=== PATIENT | male | born 1940 | race Caucasian/White ===

== ENCOUNTER 2020-07-06 07:28 | Outpatient (REF) | payer MEDICARE, SELFPAY ==
[2020-07-06 11:47] LABS: Estimated Average Glucose 217 mg/dL; Hemoglobin A1c % 9.2 %
[2020-07-06 11:51] LABS: Alanine Aminotransferase 29 U/L (0-40); Albumin Level 3.8 g/dL (3.5-5.0); Alkaline Phosphatase 57 U/L (39-117); Anion Gap 12 (12-20); Aspartate Amino Transferase 29 U/L (5-37); Blood Urea Nitrogen 15 mg/dL (9-16); Calcium 8.6 mg/dL (8.4-10.2); Carbon Dioxide 29 mmol/L (22-29); Chloride 102 mmol/L (96-108); Cholesterol 174 mg/dL; Estimated Glomerular Filt Rate > 60; Glucose Fasting 127 mg/dL (60-99); HDL Cholesterol 36 mg/dL; LDL Cholesterol Calculated 109 mg/dl; Potassium 4.5 mmol/l (3.3-5.1); Sodium 138 mmol/L (135-145); Total Protein 6.2 g/dL (6.5-8.0); Triglycerides 148 mg/dL
[2020-07-06 12:01] LABS: Creatinine Urine 95.15 mg/dL; Microalbum/Creatinine Ratio Ur 92.4 ug/mg cr
== END 2020-07-06 07:29 | disposition home or self-care (01) ==
LOC: HO.MANLR 07:28
PROVIDERS: PCP Internal Medicine; Visit Provider Internal Medicine
DX: E11.65 Type 2 diabetes mellitus with hyperglycemia (principal)
CPT/HCPCS: 80053; 80061; 82043; 83036

== ENCOUNTER 2020-09-09 10:56 | Outpatient (REF) | payer MEDICARE, SELFPAY ==
[2020-09-09 12:58] LABS: Estimated Average Glucose 243 mg/dL; Hemoglobin A1c % 10.1 %
== END 2020-09-09 10:57 | disposition home or self-care (01) ==
LOC: HO.MANLR 10:56
PROVIDERS: PCP Internal Medicine; Visit Provider Internal Medicine
DX: E11.65 Type 2 diabetes mellitus with hyperglycemia (principal)
CPT/HCPCS: 36415; 83036

== ENCOUNTER 2020-10-10 11:36 | Outpatient (REF) | payer MEDICARE, SELFPAY ==
[2020-10-10 13:42] LABS: Estimated Average Glucose 226 mg/dL; Hemoglobin A1c % 9.5 %
== END 2020-10-10 11:37 | disposition home or self-care (01) ==
LOC: HO.MANLR 11:36
PROVIDERS: PCP Internal Medicine; Visit Provider Internal Medicine
DX: E11.65 Type 2 diabetes mellitus with hyperglycemia (principal)
CPT/HCPCS: 36415; 83036

== ENCOUNTER 2020-11-04 08:01 | Outpatient (REF) | payer MEDICARE, SELFPAY ==
[2020-11-04 14:30] LABS: Estimated Average Glucose 209 mg/dL; Hemoglobin A1c % 8.9 %
== END 2020-11-04 08:02 | disposition home or self-care (01) ==
LOC: HO.MANLR 08:01
PROVIDERS: PCP Internal Medicine; Visit Provider Internal Medicine
DX: E11.65 Type 2 diabetes mellitus with hyperglycemia (principal)
CPT/HCPCS: 36415; 83036

== ENCOUNTER 2021-03-03 08:29 | Outpatient (REF) | payer MEDICARE, SELFPAY ==
[2021-03-03 11:22] LABS: Estimated Average Glucose 223 mg/dL; Hemoglobin A1c % 9.4 %
[2021-03-03 12:04] LABS: Alanine Aminotransferase 24 U/L (0-40); Albumin Level 3.8 g/dL (3.5-5.0); Alkaline Phosphatase 65 U/L (39-117); Anion Gap 15 (12-20); Aspartate Amino Transferase 22 U/L (5-37); Blood Urea Nitrogen 14 mg/dL (9-16); Calcium 8.9 mg/dL (8.4-10.2); Carbon Dioxide 25 mmol/L (22-29); Chloride 106 mmol/L (96-108); Cholesterol 181 mg/dL; Estimated Glomerular Filt Rate > 60; Glucose Random 121 mg/dL (60-115); HDL Cholesterol 35 mg/dL; LDL Cholesterol Calculated 116 mg/dl; Potassium 4.5 mmol/L (3.3-5.1); Sodium 141 mmol/L (135-145); Total Protein 6.5 g/dL (6.5-8.0); Triglycerides 152 mg/dL
== END 2021-03-03 08:30 | disposition home or self-care (01) ==
LOC: HO.MANLDS 08:29
PROVIDERS: Visit Provider Internal Medicine
DX: E11.65 Type 2 diabetes mellitus with hyperglycemia (principal)
CPT/HCPCS: 36415; 80053; 80061; 83036

== ENCOUNTER 2021-06-19 10:31 | Outpatient (REF) | payer MEDICARE, SELFPAY ==
[2021-06-19 11:53] LABS: Estimated Average Glucose 192 mg/dL; Hemoglobin A1c % 8.3 %
== END 2021-06-19 10:32 | disposition home or self-care (01) ==
LOC: HO.MANLDS 10:31
PROVIDERS: PCP Internal Medicine; Visit Provider Internal Medicine
DX: E11.65 Type 2 diabetes mellitus with hyperglycemia (principal)
CPT/HCPCS: 36415; 83036

== ENCOUNTER 2021-10-24 14:14 | Outpatient (REF) | payer MEDICARE, SELFPAY ==
[2021-10-24 18:00] LABS: Estimated Average Glucose 192 mg/dL; Hemoglobin A1c % 8.3 %
== END 2021-10-24 14:15 | disposition home or self-care (01) ==
LOC: HO.MANLDS 14:14
PROVIDERS: PCP Internal Medicine; Visit Provider Internal Medicine
DX: E11.65 Type 2 diabetes mellitus with hyperglycemia (principal)
CPT/HCPCS: 36415; 83036

== ENCOUNTER 2022-05-23 08:56 | Outpatient (REF) | payer MEDICARE, SELFPAY ==
[2022-05-23 11:31] LABS: Estimated Average Glucose 171 mg/dL; Hemoglobin A1c % 7.6 %
== END 2022-05-23 08:57 | disposition home or self-care (01) ==
LOC: HO.MANLDS 08:56
PROVIDERS: Visit Provider Internal Medicine
DX: E11.65 Type 2 diabetes mellitus with hyperglycemia (principal)
CPT/HCPCS: 36415; 83036

== ENCOUNTER 2022-09-14 13:55 | Outpatient (REF) | payer MEDICARE, SELFPAY ==
[2022-09-14 18:14] LABS: Estimated Average Glucose 183 mg/dL
== END 2022-09-14 13:56 | disposition home or self-care (01) ==
LOC: HO.MANLDS 13:55
PROVIDERS: Visit Provider Internal Medicine
DX: E11.65 Type 2 diabetes mellitus with hyperglycemia (principal)
CPT/HCPCS: 36415; 83036

== ENCOUNTER 2022-12-03 12:01 | Outpatient (REF) | payer MEDICARE, SELFPAY ==
[2022-12-03 13:23] LABS: Estimated Average Glucose 217 mg/dL; Hemoglobin A1c % 9.2 %
[2022-12-03 14:33] LABS: Alanine Aminotransferase 27 U/L (0-40); Albumin Level 3.9 g/dL (3.5-5.0); Alkaline Phosphatase 70 U/L (39-117); Anion Gap 12 (12-20); Aspartate Amino Transferase 23 U/L (5-37); Bilirubin Total 0.8 mg/dL (0.0-1.0); Blood Urea Nitrogen 20 mg/dL (9-16); Calcium 9.1 mg/dL (8.4-10.2); Carbon Dioxide 28 mmol/L (22-29); Chloride 102 mmol/L (96-108); Estimated Glomerular Filt Rate > 60; Glucose Random 274 mg/dL (60-115); Potassium 4.8 mmol/L (3.3-5.1); Sodium 137 mmol/L (135-145); Total Protein 6.2 g/dL (6.5-8.0)
== END 2022-12-03 12:02 | disposition home or self-care (01) ==
LOC: HO.MANLDS 12:01
PROVIDERS: Visit Provider Internal Medicine
DX: E11.65 Type 2 diabetes mellitus with hyperglycemia (principal)
CPT/HCPCS: 36415; 80053; 83036

== ENCOUNTER 2023-03-25 11:08 | Outpatient (REF) | payer MEDICARE, SELFPAY ==
[2023-03-25 14:19] LABS: Estimated Average Glucose 206 mg/dL; Hemoglobin A1c % 8.8 %
[2023-03-25 14:24] LABS: Alanine Aminotransferase 24 U/L (0-40); Albumin Level 3.8 g/dL (3.5-5.0); Alkaline Phosphatase 61 U/L (39-117); Anion Gap 10 (12-20); Aspartate Amino Transferase 25 U/L (5-37); Bilirubin Total 0.6 mg/dL (0.0-1.0); Blood Urea Nitrogen 18 mg/dL (9-16); Calcium 9.2 mg/dL (8.4-10.2); Carbon Dioxide 29 mmol/L (22-29); Chloride 106 mmol/L (96-108); Estimated Glomerular Filt Rate > 60; Glucose Random 151 mg/dL (60-115); Potassium 4.6 mmol/L (3.3-5.1); Sodium 140 mmol/L (135-145); Total Protein 6.8 g/dL (6.5-8.0)
== END 2023-03-25 11:09 | disposition home or self-care (01) ==
LOC: HO.MANLDS 11:08
PROVIDERS: Visit Provider Internal Medicine
DX: E11.65 Type 2 diabetes mellitus with hyperglycemia (principal)
CPT/HCPCS: 36415; 80053; 83036

== ENCOUNTER 2023-06-19 11:47 | Outpatient (REF) | payer MEDICARE, SELFPAY ==
[2023-06-19 14:11] LABS: Estimated Average Glucose 249 mg/dL; Hemoglobin A1c % 10.3 % (<6.0)
== END 2023-06-19 11:48 | disposition home or self-care (01) ==
LOC: HO.MANLDS 11:47
PROVIDERS: Visit Provider Internal Medicine
DX: E11.65 Type 2 diabetes mellitus with hyperglycemia (principal)
CPT/HCPCS: 36415; 83036

== ENCOUNTER 2023-08-12 09:13 | Outpatient (REF) | payer MEDICARE, SELFPAY ==
[2023-08-12 13:58] LABS: Estimated Average Glucose 206 mg/dL; Hemoglobin A1c % 8.8 % (<6.0)
== END 2023-08-12 09:14 | disposition home or self-care (01) ==
LOC: HO.MANLDS 09:13
PROVIDERS: Visit Provider Internal Medicine
DX: E11.65 Type 2 diabetes mellitus with hyperglycemia (principal)
CPT/HCPCS: 36415; 83036

== ENCOUNTER 2023-12-27 11:17 | Outpatient (REF) | payer MEDICARE, SELFPAY ==
[2023-12-27 13:52] LABS: Estimated Average Glucose 180 mg/dL; Hemoglobin A1c % 7.9 % (<6.0)
== END 2023-12-27 11:18 | disposition home or self-care (01) ==
LOC: HO.MANLDS 11:17
PROVIDERS: Visit Provider Internal Medicine
DX: E11.65 Type 2 diabetes mellitus with hyperglycemia (principal)
CPT/HCPCS: 36415; 83036

== ENCOUNTER 2024-03-04 10:32 | Outpatient (REF) | payer MEDICARE, SELFPAY ==
[2024-03-04 13:41] LABS: Estimated Average Glucose 220 mg/dL; Hemoglobin A1c % 9.3 % (<6.0)
== END 2024-03-04 10:33 | disposition home or self-care (01) ==
LOC: HO.MANLDS 10:32
PROVIDERS: Visit Provider Internal Medicine
DX: E11.9 Type 2 diabetes mellitus without complications (principal)
CPT/HCPCS: 36415; 83036

== ENCOUNTER 2024-10-26 10:29 | Outpatient (REF) | payer MEDICARE, SELFPAY ==
--- OUTSIDE RECORDS SUMMARY | 2024-10-26 11:52 | XMS_ITS | Continuity of Care Document ---
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) MDM MODERATE MUST MEET 2 OUT OF 3 ELEMENTS: PROBLEMS, DATA OR RISK ELEMENT 1: PROBLEMS ADDRESSED 1 OR MORE CHRONIC ILLNESS WITH EXACERBATION OR 2 OR MORE STABLE CHRONIC ILLNESSES OR 1 UNDIAGNOSED NEW PROBLEM OR 1 ACUTE ILLNESS W/SYMPTOMS OR 1 ACUTE COMPLICATED INJURY ELEMENT 2: DATA MUST MEET 1 OF 3 CATEGORIES CATEGORY 1: REVIEW OF PRIOR EXTERNAL NOTES, REVIEW OF RESULTS, ORDERING OF EACH TEST, ASSESSMENT REQUIRING INDEPENDENT HISTORIAN OR CATEGORY 2: INDEPENDENT INTERPRETATION OF TESTS BY ANOTHER PHYSICIAN OR SPECIALIST OR CATEGORY 3: DISCUSSION OF MGT OR TEST INTERPRETATION W/EXTERNAL PHYSICIAN OR SPECIALIST ELEMENT 3: RISK RISK OF COMPLICATIONS AND/OR MORBIDITY OR MORTALITY OF PATIENT MANAGEMENT PROVIDER MUST THOROUGHLY DOCUMENT EACH ELEMENT THAT IS COVERED Not available 10/26/2024 11:00:24 Plan of Treatment Reminders Order Date Submit Date Provider Last Modified By Organization Details Last Modified Time Details Appointments FOLLOW UP 15 2024 10:45A M DR THOMAS Not available Not available Not available FOLLOW UP 15 2024 10:15A M DR THOMAS Not available Not available Not available Lab None recorded . Referral None recorded . Procedures None recorded . Surgeries None recorded . Imaging None recorded . Medication Orders None recorded . Patient TargetsNo targets recorded. Patient Instructions Encounter Date Encounter Id Patient Instructions Last Modified By Organization Details Last Modified Time 10/26/2024 [id number] Peripheral Arterial Disease (PAD): Care Instructions Not available 10/26/2024 11:01:32 learning about type 2 diabetes Not available 10/26/2024 11:01:32 type 2 diabetes: care instructions Not available 10/26/2024 11:01:32 high blood pressure: care instructions Not available 10/26/2024 11:01:32 learning about high blood pressure Not available 10/26/2024 11:01:32 pulse oximetry* AR Not available 10/26/2024 11:09:59 atrial fibrillation: care instructions Not available 10/26/2024 11:01:32 Reason for Referral None Reported. Results Created Date Observation Date Name Description Value Unit Range Abnormal Flag Note LastModifiedBy Organization Detail LastModifiedTime 10/26/19 25 10/26/2024 pulse oxime try* Result 98 Not Available [facility] [address], [place], [address], 10/23/2024 11:14:03 Result Notes None recorded. Problems Name Problem SNOMED Code Status Onset Date Resolution Date Notes Provider Name and Address Organization Details Recorded Time Edema of lower extremit y 668032737 Active 2017 Not Available [facility] 3 11:53:14 Osteoart hritis of knee 373744592 Active 2017 Not Available [facility] 3 11:53:14 Tachyarr hythmia 8310750 Active 2017 Not Available [facility] 3 11:53:14 [facility] patrica 89716005 Active 2017 Not Available [facility] 3 11:53:14 Myasthen ia gravis 69391350 Active 2017 Not Available [facility] 3 11:53:14 Type 2 diabetes mellitus 02537444 Active 2017 Not Available [facility] 3 11:53:14 Venous stasis ulcer of leg 869973906 Active 2019 Not Available [facility] 3 11:53:14 Atrial fibrilla tion 95243127 Active 2022 Not Available [facility] 3 11:53:14 Peripher al vascular disease 453657020 Active 2022 Not Available [facility] 3 11:53:14 Contact dermatit is 59359328 Active 2022 Not Available [facility] 3 11:53:14 Contact dermatit is caused by urushiol from [facility] debo 097673706 Active 2022 Not Available [facility] 3 11:53:14 Dyspnea on exertion 49044277 Active 2023 Tommie Thomas, DO [address] [place], [address], [facility] 4 11:10:11 Aortic valve stenosis 90577783 Active 2023 Tommie Thomas, DO [address] [place] [address], [phone], [facility] Internal [facility] 4 11:12:53 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 Medical Equipment None Reported. Allergies Allergen ID Allergen Name Allergen Category Reaction Reaction Severity Criticality Documentation Date Start Date Code Code System Note Provider Name and Address Organization Details Recorded Time 232 Product containin g 3-hydroxy -3-methyl glutaryl- coenzyme A reductase inhibitor (product) medicatio n other Not available Not available 11/04/2017 [id number] SNOMED Nataliya Rdz [facility] 8 11:08:02 Medications Name Sig Start Date Stop Date Status Note LastModified by Organization Details LastModified Time Prescriptio n - Prior Authorizati on Request 12/30 completed Not Available Not Available Not Available celecoxib 200 mg capsule 12/30 completed Not Available Not Available Not Available metformin 500 mg tablet TAKE 1 TABLET BY MOUTH TWICE DAILY WITH MEALS 09/24 completed Not Available Not Available Not Available prednisone 10 mg tablet TAKE 1 TABLET BY MOUTH EVERY DAY FOR 10 DAYS 07/06 completed Not Available Not Available Not Available azithromyci n 250 mg tablet TAKE 2 TABLETS (500 MG) BY ORAL ROUTE ONCE DAILY FOR 1 DAY THEN 1 TABLET (250 MG) BY ORAL ROUTE ONCE DAILY FOR 4 DAYS 09/28 completed Not Available Not Available Not Available glyburide 5 mg tablet TAKE 1 TABLET BY MOUTH TWICE DAILY 08/09 completed Not Available Not Available Not Available ofloxacin 0.3 % eye drops 07/21 completed Not Available Not Available Not Available lisinopril 20 mg tablet TAKE 1 TABLET BY MOUTH EVERY DAY active Not Available Not Available No t Available glipizide 10 mg tablet TAKE 1 TABLET BY MOUTH TWICE DAILY active Not Available Not Available No t Available moxifloxaci n 400 mg tablet TAKE 1 TABLET BY MOUTH DAILY FOR 10 DAYS 03/04 completed Not Available Not Available Not Available torsemide 10 mg tablet active Not Available Not Available Not Available methotrexat e sodium 25 mg/mL injection solution INJECT 1 ML UNDER THE SKIN EVERY WEEK active Not Available Not Available No t Available spironolact one 25 mg tablet Take 1 tablet every day by oral route for 30 days. 01/23 completed Not Available Not Available Not Available hydromorpho ne 2 mg tablet 04/09 completed Not Available Not Available Not Available cephalexin 500 mg capsule TAKE 1 CAPSULE BY MOUTH FOUR TIMES DAILY FOR 7 DAYS 07/06 completed Not Available Not Available Not Available pantoprazol e 40 mg tablet,kesha yed release 12/30 completed Not Available Not Available Not Available folic acid 1 mg tablet TAKE 1 TABLET BY MOUTH EVERY DAY active Not Available Not Available No t Available furosemide 20 mg tablet Take 1 tablet every day by oral route for 90 days. 09/28 completed Not Available Not Available Not Available methylpredn isolone 4 mg tablets in a dose pack FOLLOW PACKAGE DIRECTION S 12/29 completed Not Available Not Available Not Available glipizide 5 mg tablet TAKE 1 TABLET BY MOUTH TWICE DAILY active Not Available Not Available No t Available Alberto Low Strength 81 mg tablet,kesha yed release Take 1 tablet every day by oral route. active Not Available Not Available No t Available methotrexat e sodium (PF) 25 mg/mL injection solution INJECT 1 ML UNDER THE SKIN EVERY WEEK 07/06 completed Not Available Not Available Not Available BD SafetyGlide Tuberculin Regular Bevel 1 mL 27 x 1/2 syringe INJECT 1 EACH UNDER THE SKIN DIRECTED FOR WEEKLY METHOTREX ATE INJECTION active Not Available Not Available No t Available metoprolol tartrate 25 mg tablet TAKE 1 TABLET BY MOUTH TWICE DAILY active Not Available Not Available No t Available Boostrix Tdap 2.5 Lf unit-8 mcg-5 Lf/0.5 mL intramuscul ar syringe 01/23 completed Not Available Not Available Not Available BD Ultra-Fine Short Pen Needle 31 gauge x 5/16 USE DIRECTED ONCE DAILY 04/12 completed Not Available Not Available Not Available Januvia 100 mg tablet TAKE 1 TABLET BY MOUTH EVERY DAY active Not Available Not Available No t Available Durezol 0.05 % eye drops 04/21 completed Not Available Not Available Not Available OneTouch Verio test strips USE 1 STRIP TO TEST BLOOD GLUCOSE DAILY active Not Available Not Available No t Available Prolensa 0.07 % eye drops 04/21 completed Not Available Not Available Not Available Trulicity 1.5 mg/0.5 mL subcutaneou s pen injector ADMINISTE R 1.5 MG UNDER THE SKIN EVERY WEEK active Not Available Not Available No t Available Trulicity 0.75 mg/0.5 mL subcutaneou s pen injector INJECT 0.75 MG UNDER THE SKIN TWICE ONCE PER WEEK 07/06 completed Not Available Not Available Not Available Gillaglharry KwikPen U-100 Insulin 100 unit/mL (3 mL) subcutaneou s INJECT 30 UNITS UNDER THE SKIN EVERY DAY active Not Available Not Available No t Available Shingrix (PF) 50 mcg/0.5 mL intramuscul ar suspension, kit 01/23 completed Not Available Not Available Not Available Vitals Date Recorded Body height Body mass index (BMI) Body weight Heart rate Oxygen saturation Oxygen saturation in Arterial blood by Pulse oximetry Systolic blood pressure Diastolic blood pressure Provider Name and Address Organization Details Last Updated DateTime 5 176.53 cm 33.5 kg/m2 450771. 25 g 40 /min 98 % 98 % 124 mm[Hg] 64 mm[Hg] [facility] 5 10:49:53 Social History Question Answer Notes LastModified by Organizat ion Details LastModified Time Tobacco Smoking Status [facility] 13:39:46 What Was The Date Of Your Most Recent Tobacco Screening? 10/26/2024 Information not available 10/26/2024 Do You Or Have You Ever Used Any Other Forms Of Tobacco Or Nicotine? No Information not available 09/24/2022 Sex: Unknown Functional Status None recorded. Mental Status None recorded. Family History Nothing Reported. Medical History No medical history recorded. Immunizations Vaccine Type Date Status Note Provider Nam e and Address Organization Details Recorded Time COVID-19, mRNA, LNP-S, PF, 30 mcg/0.3 mL dose 12/04/19 completed Diamond flores [facility] 03/08/2021 08:33:00 COVID-19, mRNA, LNP-S, PF, 30 mcg/0.3 mL dose 12/25/19 21 completed [facility] 03/08/2021 08:33:09 Influenza, split virus, quadrivalent, preservative 07/07/20 21 completed [facility] 07/21/2021 11:10:18 COVID-19, mRNA, LNP-S, PF, 30 mcg/0.3 mL dose 08/16/20 21 completed Tommie Thomas, [address], [phone] 08/18/2021 07:09:38 COVID-19, mRNA, LNP-S, PF, 30 mcg/0.3 mL dose 03/21/20 22 completed Lupe flores [facility] 03/23/2022 08:47:42 zoster live 02/12/20 18 completed Nataliya flores [facility] 06/20/2018 11:27:28 zoster live 05/29/20 18 dominick folres [facility] 06/20/2018 11:27:38 Influenza, split virus, quadrivalent, preservative 05/29/20 18 dominick flores [facility] 06/20/2018 11:27:53 pneumococcal polysaccharide PPV23 07/18/20 16 completed Nataliya flores [facility] 06/20/2018 11:28:54 Pneumococcal conjugate PCV 13 01/20/20 15 completed Nataliya flores [facility] 06/20/2018 11:29:08 COVID-19, mRNA, LNP-S, bivalent, PF, 10 mcg/0.2 mL 07/24/20 22 completed Nataliya flores [facility] 07/30/2022 08:29:21 influenza, unspecified formulation 07/24/20 dominick flores [facility] 07/30/2022 08:29:29 SARS-COV-2 (COVID-19) vaccine, UNSPECIFIED 07/16/20 completed Adiel flores [facility] 07/17/2023 11:55:06 influenza, unspecified formulation 07/16/20 dominick flores [facility] 07/17/2023 11:55:46 Influenza, split virus, quadrivalent, preservative 04/18/20 dominick flores [facility] 04/19/2020 11:50:44 Past Encounters Encounter ID Performer Location Encounter Start Date Encounter Closed Date Diagnosis/Indication Diagnosis SNOMED-CT Code Diagnosis ICD10 Code Diagnosis Note [id number] Tommie Thomas [facility] [address],[place] [address] 10/26/2024 10:43:24 10/26/2024 11:14:51 Atrial fibrillation 16569573 I48.91 stable and no palpitatio ns or presncopal sx chads2 eval done and is stable Essential hypertension 90324041 I10 stable no change in meds will cont to monitor at home Peripheral vascular disease 844307893 I73.9 denies any issues still swollen Type 2 darirck betes mellitus 83943605 E11.9 has been doing well and actually lost weight and was down to 230a1c is pending has been off trulicity since surgery go back on eating better now a1c pending a1c is down to 8.8 from 10.2 we had increased glipizide to 10 biddiscuss ed need to cont good diet and adhere to med schednow using trulicity 1.5 2 shots per week he has stopped januvia due to hypoglycem ia Health Concerns Section Related Observation LastModified by Organization Detai ls LastModified Time None Recorded Concern Status LastModified by Organization Details LastModified Time None Recorded Payers Encounter Date Sequence Insurance Name Policy Number Policy Potter Covered Member ID Potter Member ID Guarantor Name 10/26/2024 1 [place] [employer] John Greenfield [id number] John Greenfield 10/26/2024 2 [place] [id number] John Greenfield [id number] John Greenfield Notes Date Note Type Note Provider Name and Address Organization Details Recorded Time 5 text/htm l Care Management - DiabetesReported bypatient.Self Care:seeing eye doctor yearly for dilated eye exam; checking feet regularly; normal range of home blood sugars (in the low 100s); no side effects from medications Associated Symptoms:symptoms are usually well controlled; no fatigue; no dizziness; no excessive sweating; no headaches; no confusion; no increased thirst; no increased appetite; no increased urination; no blurred vision; no numbness of feet; no calluses on feetCare Management - HypertensionReported bypatient.Self Care:not under emotional stress Severity:symptoms are improving; does not interfere with daily activities Associated Symptoms:no dizziness; no lightheadedness; no chest pain; no shortness of breath; no palpitations; no edema; no calf muscle cramps; no blurred vision; no confusion; no headaches; no fatigue here for rechk and is eeling pretty goodno cp no sob but does get some exertional dyspneawill be seeing the cardiol next moa1c done today Tommie Thomas, DO [address] [facility], [place], [address], [facility] 10/26/2024 11:02:53
--- OUTSIDE RECORDS SUMMARY | 2024-10-26 11:53 | XMS_ITS | Data Portability ---
Author Organization [facility] Address [address] [place] [address] Assessment Encounter Date Assessment Date Assessment LastModified by Organization Details LastModified Time 09/23/2023 09/23/2023 [id number] [place] [id number] (RECOVERY MANAGER) MDM MODERATE MUST MEET 2 OUT [...] EACH ELEMENT THAT IS COVERED Not available 09/23/2023 11:09:13 12/30/2023 12/30/2023 [id number] [place] [id number] (RECOVERY MANAGER) MDM MODERATE MUST MEET 2 OUT [...] EACH ELEMENT THAT IS COVERED Not available 12/30/2023 11:17:43 03/04/2024 03/04/2024 [id number] [place] [id number] (RECOVERY MANAGER) MDM HIGH MUST MEET 2 OUT OF 3 ELEMENTS: PROBLEMS, DATA OR RISK ELEMENT 1: PROBLEMS 1 OR MORE CHRONIC ILLNESS W/SEVERE EXACERBATION, PROGRESSION MAY REQUIRE HOSPITAL LEVEL CARE OR 1 ACUTE OR CHRONIC ILLNESS OR INJURY THAT POSES A THREAT TO LIFE OR BODILY FUNCTION ELEMENT 2: DATA: MUST MEET 2 OF 3 CATEGORIES CATEGORY 1 REVIEW OF PRIOR EXTERNAL NOTES REVIEW OF THE RESULTS ORDERING OF EACH TEST ASSESSMENT REQUIRING INDEPENDENT HISTORIAN(S) CATEGORY 2: INDEPENDENT INTERPRETATION OF TESTS BY ANOTHER PROVIDER/SPECIALI ST CATEGORY 3: DISCUSSION OF MGT OR TEST INTERPRETATION W/EXTERNAL PHYSICIAN/SPECIAL IST ELEMENT 3: RISK HIGH RISK OF MORBIDITY FROM ADDITIONAL DIAGNOSTIC TESTING OR TREATMENT PROVIDER MUST THOROUGHLY DOCUMENT EACH ELEMENT THAT IS COVERED Not available 03/04/2024 10:24:54 07/06/2024 07/06/2024 Patient presente d to office today for their Medicare Annual Wellness Visit. Education was provided on healthy nutrition, including a diet rich in fruits and vegetables, minimizing simple carbohydrates, salt, and saturated fats. Encouraged regular cardiovascular exercise such as walking at least 30 minutes daily, 5 times per week. Emphasized preventive health measures and educated pt on fall prevention and community-based lifestyle interventions to help reduce health risks and promote healthy living. Not available 07/03/2024 16:12:13 10/26/2024 10/26/2024 [id number] [place] [id number] (RECOVERY MANAGER) MDM MODERATE MUST MEET 2 OUT [...] Last Modified Time Details Appointments FOLLOW UP 2024 10:45A Gabrielle THOMAS Not available Not available Not available FOLLOW UP 15 2024 10:15A M DR THOMAS Not available Not available Not available Lab HbA1c (hemoglo bin A1c), blood 2023 024 [facility], [address] [place] [address], [id number], 07/06/2024 11:26:05 lipid panel, blood 2023 024 [facility], [address] [place] [address], [id number], 07/06/2024 11:25:41 hemoglob in, gastroin testinal , stool 2023 024 [facility], [address] [place] [address], [id number], 07/06/2024 11:25:41 CBC w/ auto diff 2023 024 [facility], [address] [place] [address], [id number], 07/17/2024 12:41:39 CMP, serum or plasma 2023 024 [facility], [address] [place] [address], [id number], 07/17/2024 14:15:00 HbA1c (hemoglo bin A1c), blood 2023 024 [facility], [address] [place] [address], [id number], 03/05/2024 11:10:44 HbA1c (hemoglo bin A1c), blood 2023 024 [facility], [address] [place] [address], [id number], 05/26/2024 07:47:19 HbA1c (hemoglo bin A1c), blood 2023 025 [facility], [address] [place] [address], [place], [id number], 05/26/2024 07:47:19 Referral None recorded . Procedures None recorded . Surgeries None recorded . Imaging None recorded . Medication Orders None recorded . Patient TargetsNo targets recorded. Patient Instructions Encounter Date Encounter Id Patient Instructions Last Modified By Organization Details Last Modified Time 09/23/2023 [id number] pulse oximetry* Not available 09/23/2023 11:15:53 03/04/2024 [id number] Peripheral Arterial Disease (PAD): Care Instructions Not available 03/04/2024 10:27:01 myasthenia gravis: care instructions Not available 03/04/2024 10:27:01 learning about type 2 diabetes Not available 03/04/2024 10:27:02 type 2 diabetes: care instructions Not available 03/04/2024 10:27:01 leg and ankle edema: care instructions Not available 03/04/2024 10:27:02 atrial fibrillation: care instructions Not available 03/04/2024 10:27:02 high blood pressure: care instructions Not available 03/04/2024 10:27:02 learning about high blood pressure Not available 03/04/2024 10:27:01 aortic valve stenosis: care instructions Not available 03/04/2024 10:27:02 07/06/2024 [id number] Peripheral Arterial Disease (PAD): Care Instructions Not available 07/06/2024 11:24:24 leg and ankle edema: care instructions Not available 07/06/2024 11:24:23 learning about type 2 diabetes Not available 07/06/2024 11:24:24 type 2 diabetes: care instructions Not available 07/06/2024 11:24:24 pulse oximetry* Not available 07/06/2024 11:24:24 atrial fibrillation: care instructions Not available 07/06/2024 11:24:23 advance care planning: care instructions Not available 07/06/2024 11:24:24 Discussed and explained advance directives such as standard forms to the {{patient caregiv er patient and caregiver}}. Face to face discussion lasted for a duration of ___ minutes. Not available 07/03/2024 16:12:13 10/26/2024 [id number] Peripheral Arterial Disease (PAD): Care Instructions Not [...] Abnormal Flag Note LastModifiedBy Organization Detail LastModifiedTime 09/23/19 24 09/23/2023 pulse oxime try* Result 99 Not Available [facility] [address] [place] [address] D, [place], [address], 09/18/2023 14:09:51 07/06/20 24 07/06/2024 pulse oxime try* Result 94 Not Available [facility] [address] [facility] D, [place], [address], 07/03/2024 16:12:20 10/26/19 25 10/26/2024 pulse oxime try* Result 98 Not Available [facility] [address] [facility] [address], [place], [address], 10/23/2024 11:14:03 10/22/19 24 10/22/2023 dobut amine stres s echoc ardio gram (PROC ) No observ ation record ed. [facility] [address], [place], [address], 10/22/2023 11:23:53 02/21/20 24 02/20/2024 US, echoc ardio gram No observ ation record ed. [facility] [address], [place], [address], 02/24/2024 08:22:33 Result Notes None recorded. Problems Name Problem SNOMED Code Status Onset Date Resolution Date Notes Provider Name and Address Organization Details Recorded Time Edema of lower extremit y 862331007 Active 2017 Not Available [facility] 3 11:53:14 Osteoart hritis of knee 030701305 Active 2017 Not Available [facility] 3 11:53:14 Tachyarr hythmia 0548340 Active 2017 Not Available [facility] 3 11:53:14 [facility] hyperten patrica 03547691 Active 2017 Not Available [facility] 3 11:53:14 Myasthen ia gravis 88453077 Active 2017 Not Available [facility] 3 11:53:14 Type 2 diabetes mellitus 56116961 Active 2017 Not Available [facility] 3 11:53:14 Venous stasis ulcer of leg 996456242 Active 2019 Not Available [facility] 3 11:53:14 Atrial fibrilla tion 03913008 Active 2022 Not Available [facility] 3 11:53:14 Peripher al vascular disease 087217411 Active 2022 Not Available [facility] 3 11:53:14 Contact dermatit is 40552369 Active 2022 Not Available [facility] 3 11:53:14 Contact dermatit is caused by urushiol from [facility] debo 235980470 Active 2022 Not Available [facility] 3 11:53:14 Dyspnea on exertion 69125481 Active 2023 Tommie Thomas, [address] [place], [address], [facility] 4 11:10:11 Aortic valve stenosis 40429099 Active 2023 Tommie Thomas, DO [address] [place], [address], [facility] 4 11:12:53 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 Procedures Surgical History None recorded. Imaging Results Imaging Date Name Status LastModified by Organization Details LastModified Time 10/22/2023 dobutamine stress echocardiogram (PROC) completed [address] [facility] [address], [place], [address], 10/22/2023 11:23:53 02/20/2024 , echocardiogram completed [address] [facility] [address], [place], [address], 02/24/2024 08:22:33 Procedure Notes None recorded. Medical Equipment None Reported. Allergies Allergen ID Allergen Name Allergen Category Reaction Reaction Severity Criticality Documentation Date Start Date Code Code System Note Provider Name and Address Organization Details Recorded Time 232 Product containin g 3-hydroxy -3-methyl glutaryl- coenzyme A reductase inhibitor (product) medicatio n other Not available Not available 11/04/2017 41973 009 [facility] [place] [facility] 8 11:08:02 Medications Name Sig Start [...] completed Not Available Not Available Not Available Basaglar KwikPen U-100 Insulin 100 unit/mL (3 mL) [...] and Address Organization Details Last Updated DateTime 4 176.53 cm 38.1 kg/m2 419576. 2 g 62 /min 99 % 99 % 138 mm[Hg] 78 mm[Hg] Tressa Howe [facility] 4 10:36:39 Date Recorded Body height Body mass index (BMI) Body weight Heart rate Oxygen saturation Oxygen saturation in Arterial blood by Pulse oximetry Systolic blood pressure Diastolic blood pressure Provider Name and Address Organization Details Last Updated DateTime 4 176.53 cm 36.7 kg/m2 861876. 28 g 58 /min 95 % 95 % 158 mm[Hg] 72 mm[Hg] Tommie Thomas, DO [address] [place], [address], [facility] 4 10:54:03 Date Recorded Body height Body mass index (BMI) Body weight Heart rate Oxygen saturation Oxygen saturation in Arterial blood by Pulse oximetry Systolic blood pressure Diastolic blood pressure Provider Name and Address Organization Details Last Updated DateTime 4 176.53 cm 36.1 kg/m2 693979. 91 g 67 /min 98 % 98 % 140 mm[Hg] 80 mm[Hg] Essence Bonner [facility] 4 10:03:32 Date Recorded Body height Body mass index (BMI) Body weight Heart rate Oxygen saturation Oxygen saturation in Arterial blood by Pulse oximetry Systolic blood pressure Diastolic blood pressure Provider Name and Address Organization Details Last Updated DateTime 4 176.53 cm 33.9 kg/m2 748943. 02 g 64 /min 94 % 94 % 136 mm[Hg] 80 mm[Hg] Tommie Thomas DO [address] [place], [address], [facility] 4 10:57:54 Date Recorded Body height Body mass index (BMI) Body weight Heart rate Oxygen saturation Oxygen saturation in Arterial blood by Pulse oximetry Systolic blood pressure Diastolic blood pressure Provider Name and Address Organization Details Last Updated DateTime 5 176.53 cm 33.5 kg/m2 933619. 25 g 40 /min 98 % 98 % 124 mm[Hg] 64 mm[Hg] Isacc Noble [facility] 5 10:49:53 Social History Question Answer Notes LastModified by Organizat ion Details LastModified Time Tobacco Smoking Status [facility]/30/2017 13:39:46 What Was The Date Of [...] mcg/0.3 mL dose 12/04/19 completed Diamond flores [facility] 03/08/2021 08:33:00 COVID-19, mRNA, LNP-S, PF, 30 mcg/0.3 mL dose 12/25/19 21 completed Diamond flores [facility] 03/08/2021 08:33:09 Influenza, split virus, quadrivalent, preservative 07/07/20 21 completed [facility] 07/21/2021 11:10:18 COVID-19, mRNA, LNP-S, PF, 30 mcg/0.3 mL dose 08/16/20 21 completed Tommie Thomas, DO [address] [place] [address], [place], [address], [facility] 08/18/2021 07:09:38 COVID-19, mRNA, LNP-S, PF, 30 mcg/0.3 mL dose 03/21/20 22 completed Lupe flores [facility] 03/23/2022 08:47:42 zoster live 02/12/20 18 completed Nataliya flores [facility] 06/20/2018 11:27:28 zoster live 05/29/20 18 completed Nataliya flores [facility] 06/20/2018 11:27:38 Influenza, split virus, quadrivalent, preservative 05/29/20 18 completed Nataliya flores [facility] 06/20/2018 11:27:53 pneumococcal polysaccharide PPV23 07/18/20 16 completed Nataliya flores [facility] 06/20/2018 11:28:54 Pneumococcal conjugate PCV 13 01/20/20 15 completed Nataliya flores [facility] 06/20/2018 11:29:08 COVID-19, mRNA, LNP-S, bivalent, PF, 10 mcg/0.2 mL 07/24/20 completed Nataliya flores [facility] 07/30/2022 08:29:21 influenza, unspecified formulation 07/24/20 dominick flores [facility] 07/30/2022 08:29:29 SARS-COV-2 (COVID-19) vaccine, UNSPECIFIED 07/16/20 completed Adiel flores [facility] 07/17/2023 11:55:06 influenza, unspecified formulation 07/16/20 dominick flores [facility] 07/17/2023 11:55:46 Influenza, split virus, quadrivalent, preservative 04/18/20 dominick flores [facility] 04/19/2020 11:50:44 Past Encounters Encounter ID Performer Location Encounter Start Date Encounter Closed Date Diagnosis/Indication Diagnosis SNOMED-CT Code Diagnosis ICD10 Code Diagnosis Note [id number] Tommie Thomas [facility] [address] [facility], [place] [address] 12/30/2017 13:30:58 12/30/2017 15:19:07 Type 2 diabetes mellitus 42706223 E11.65 needs to alose margret discussed need to have a diet in place jesús since his knee replacemen t sutrg Essential hypertension 62621744 I10 stable [id number] Tommie Thomas [facility] [address] [facility], [place] [address] 04/09/2018 11:46:51 04/09/2018 14:33:18 Type 2 diabetes mellitus 39091472 E11.65 needs to alose margret discussed need to have a diet in place jesús since his knee replacemen t sutrg Essential hypertension 63942360 I10 stable Osteoarthr itis of knee 165673512 M17.0 cont to treat conserv uses alleve once in a while warned about excessive use of this [id number] Tommie Thomas [facility] [address] [facility], ite [facility] [place] [address] 04/18/2018 14:55:41 04/18/2018 16:08:41 Type 2 diabetes mellitus 44866010 E11.65 as stated, needs to alose wieght discussed need to have a diet in place jesús since his knee replacemen t sutrg discussed need to cont good diet and adhere to med sched Essential hypertension 97903709 I10 stable Edema of l ower extremity 773320117 R60.0 still swollen and this is bothersome will keeep close eye on them and will treat with lasix if any signs keep legs elevated wont wear teds support hose [id number] Tommie Thomas [facility] [address] [facility], ite [facility] [place] [address] 09/26/2018 10:11:54 09/26/2018 11:39:58 Essential hypertension 60292135 I10 stable Type 2 darrick betes mellitus 21276262 E11.65 a1c is 7.9 as stated, needs to lose weight discussed need to have a diet in place jesús since his knee replacemen t surg discussed need to cont good diet and adhere to med sched Edema of l ower extremity 233542430 R60.0 still swollen and this is bothersome will keep close eye on them and will treat with lasix if any signs keep legs elevated wont wear teds support hose [id number] Tommie Thomas [facility] [address] [facility], ite [place] [address] 01/23/2019 09:42:01 01/23/2019 10:30:33 Type 2 diabetes mellitus 56196097 E11.65 a1c is 7.9 again and as stated, needs to lose weight discussed need to have a diet in place jesús since doing well with knee replacemen t discussed need to cont good diet and adhere to med sched Essential hypertension 41514965 I10 stable no change in meds Edema of l ower extremity 020473074 R60.0 still swollen and this is bothersome will keep close eye on them and will treat with lasix if any signs keep legs elevated wont wear teds support hose [id number] Tommie Thomas [facility] [address] [facility],[place] [address] 06/17/2019 14:43:41 06/17/2019 15:53:40 Type 2 diabetes mellitus 68491973 E11.65 a1c is 7.4 and as stated, cont to lose weight discussed need to have a diet in place jesús since doing well with knee replacemen t discussed need to cont good diet and adhere to med sched Essential hypertension 94284515 I10 stable no change in meds Venous sta sis ulcer of leg 562853742 I83.009 cont with [facility] [id number] Tommie Thomas [facility] [address] [facility],[place] [address] 09/28/2019 11:33:40 09/28/2019 13:50:50 Essential hypertension 29510532 I10 stable no change in meds Type 2 darrick betes mellitus 08108721 E11.65 a1c is pending and as stated,marisol ble to lose weight discussed need to have a diet in place jesús since doing well with knee replacemen t but his diabetes wont let his leg heal if we cant get it down discussed need to cont good diet and adhere to med sched Edema of l ower extremity 373306291 R60.0 still swollen and this is bothersome will keep close eye on them and will treat with lasix if any signs keep legs elevated wont wear teds support hose Venous sta sis ulcer of leg 504007520 I83.009 cont with [facility] [id number] Tommie Thomas [facility] [address] [facility],[place] [address] 01/11/2020 13:57:35 01/11/2020 14:38:25 Essential hypertension 38651091 I10 stable no change in meds Edema of l ower extremity 167102953 R60.0 still swollen and this is bothersome will keep close eye on them and will treat with lasix if any signs keep legs elevated wont wear teds support hose believe his leg weakness is psoss caused by lumbar stenosis? had PVD eval already Type 2 darrick betes mellitus 87764862 E11.65 a1c is pending and as stated,marisol ble to lose weight discussed need to have a diet in place jesús since doing well with knee replacemen t but his diabetes wont let his leg heal if we cant get it down discussed need to cont good diet and adhere to med sched Weakness o f distal arms and legs 874501366 M62.81 mostly inthe legs gets very weak after walking short distances and had a normal blood flow eval (neg for PVD) [id number] Tommie Thomas DO [facility] [address] [facility],[place] [facility] [address] 09/12/2020 08:42:57 09/12/2020 15:30:35 Type 2 diabetes mellitus 10540576 E11.65 a1c is 10.1 and as stated,nee ds to lose weight discussed, he need to have a diet in place jesús since doing well with knee replacemen t but his diabetes will kill him if he doesnt comply with \diet discussed need to cont good diet and adhere to med sched Essential hypertension 82339880 I10 stable no change in meds Edema of l ower extremity 696101755 R60.0 still swollen and this is bothersome will keep close eye on them and will treat with lasix if any signs keep legs elevated wont wear teds support hose believe his leg weakness is psoss caused by lumbar stenosis? had PVD eval already [id number] FIDELIA RODRIGUEZ [facility] [address] [facility],[place] [facility] [address] 11/11/2020 14:02:52 11/11/2020 15:46:50 Pre-surgery evaluation 801175119 Z01.818 The patient was seen in the office today for pre-op evaluation . All medical conditions on patient's problem list were addressed and are currently stable, no interventi on needed at this time. Based on history and physical performed, the patient is cleared for surgery. Essential hypertension 81038143 I10 BP recheck was 132/70, BP stable for surgery [id number] Tommie Thomas [facility] [address] [facility],[place] [facility] [address] 04/21/2021 14:39:15 04/21/2021 15:46:17 Type 2 diabetes mellitus 18616420 E11.65 a1c is 9.4 and was 10.1 and as stated,[place] to lose weight discussed, he need to have a diet in place jesús since doing well with knee replacemen t but his diabetes will kill him if he doesnt comply with \diet discussed need to cont good diet and adhere to med sched Essential hypertension 46032556 I10 stable no change in meds Venous sta sis ulcer of leg 539661525 I83.009 overall is stable now [place] a [place] [id number] Tommie Thomas DO [facility] [address] [facility] [address] 07/21/2021 10:55:04 07/21/2021 14:10:02 Type 2 diabetes mellitus 91557513 E11.65 a1c is now down to 8.3 from the trulicity he was in march 10.4 and was 10.1 and as stated,shivani [place] to lose weight discussed he has lost a few obs doing well with knee replacemen t discussed need to cont good diet and adhere to med sched Essential hypertension 54426832 I10 stable no change in meds [id number] Tommie Thomas DO [facility] [address] [facility] [address] 10/25/2021 11:27:12 10/25/2021 12:07:07 Type 2 diabetes mellitus 33147652 E11.65 a1c is now down to 8.3 from the trulicity he was in march 10.4 and was 10.1 and as stated,shivani [place] to lose weight discussed he has lost a few obs doing well with knee replacemen t discussed need to cont good diet and adhere to med sched Essential hypertension 48247829 I10 stable no change in meds Venous sta sis ulcer of leg 428454237 I83.009 overall is stable now no remnants Tachyarrhythmia 1282456 R00.0 quiet no issues Edema of l ower extremity 462725842 R60.0 much better down to 1+wont wear teds support hose believe his leg weakness is psoss caused by lumbar stenosis? had PVD eval already [id number] DO [facility] [address] [facility], [place] [facility] [address] 05/04/2022 08:16:10 05/08/2022 10:28:25 Essential hypertension 65665326 I10 stable no change in meds will cont to monitor at home Edema of l ower extremity 086376881 R60.0 much better down to 1+ or less staying very active puts legs upwont wear teds support hose believe his leg weakness is psoss caused by lumbar stenosis? had PVD eval already Myasthenia gravis 307762 04 G70[address] nely davidson without issue must remember he is somewhat immunocomp romised with the medication use (per dr mckay) Type 2 darrick betes mellitus 55222846 E11.65 a1c is pending he was down to 8.3 from the trulicity he has lost lbs and is down to 240 doing well with knee replacemen t discussed need to cont good diet and adhere to med sched [id number] Tommie Thomas, [facility] [address] [facility], [place] [facility] [address] 09/24/2022 11:05:54 09/24/2022 12:21:46 Essential hypertension 14862260 I10 stable no change in meds will cont to monitor at home Type 2 darrick betes mellitus 00227978 E11.65 a1c is pending he was up to 8 was 7,5 prior and then befor it was up to 8.3 from [facility] has [facility] and is down to 240he is still on metformin and i am worried about his renal fucntiuon etc we will dc this nowdoing well with knee replacemen t discussed need to cont good diet and adhere to med sched Venous sta sis ulcer of leg [id number] I83.009 overall is stable now no remnants Myasthenia gravis 934821 04 G70[address] nely davidson without issue must remember he is somewhat immunocomp romised with the medication use (per dr mckay) Active or passive immunization [id number] Z23 patient advised he is due for tdap [id number] Tommie Thomas [facility] Internal Medicine [address] [facility] [address],[place] [address] 12/03/2022 11:04:16 12/03/2022 13:31:48 Type 2 diabetes mellitus 77330231 E11.65 a1c is pending he was up to 8 was 7,5 prior and then befor it was up to 8.3 from the [facility] he has lost lbs and is down to 240 discussed need to cont good diet and adhere to med sched Essential hypertension 79946933 I10 stable no change in meds will cont to monitor at home Atrial fibrillation 4943 6004 I48.91 stble and no palpitatio ns or presncopal sx Edema of l ower extremity 623176105 R60.0 much better down to 1+ or less staying very active puts legs upwont wear teds support hose believe his leg weakness is psoss caused by lumbar stenosis? had PVD eval already [id number] Tommie Thomas [facility] Internal Medicine [address] [facility],[place] [address] 03/25/2023 10:29:07 03/25/2023 11:09:39 Atrial fibrillation 02588056 I48.91 stble and no palpitatio ns or presncopal sx Essential hypertension 26571885 I10 stable no change in meds will cont to monitor at home Type 2 darrick betes mellitus 96057619 E11.65 a1c is pending he was up to 8 was 7,5 prior and then befor it was up to 8.3 from the [facility] he has lost lbs and is down to 240 discussed need to cont good diet and adhere to med sched Peripheral vascular disease 913404407 I73.9 denies any issues still swollen [id number] Tommie Thomas DO [facility] Internal Medicine [address] [facility],[place] [address] 06/19/2023 11:02:36 06/19/2023 13:22:53 Atrial fibrillation 73409134 I48.91 stble and no palpitatio ns or presncopal sx Essential hypertension 66001280 I10 stable no change in meds will cont to monitor at home Type 2 darrick betes mellitus 85865961 E11.65 a1c is pending he was up to 8 was 7,5 prior and then befor it was up to 8.3 from the [facility] he has lost lbs and is down to 240 discussed need to cont good diet and adhere to med sched Edema of l ower extremity 469740984 R60.0 much better down to 1+ or less staying very active puts legs upwont wear teds support hose believe his leg weakness is poss caused by lumbar stenosis? had PVD eval already Contact de rmatitis caused by urushiol from [facility] debo [id number] L25.5 will provide with a few more days of pred [id number] Tommie Thomas [facility] Internal Medicine [address],[place] [address] 09/23/2023 10:30:40 09/23/2023 11:21:57 Type 2 diabetes mellitus 42543242 E11.65 a1c is down to 8.8 from 10.2 we had increased glipizide to 10 biddiscuss ed need to cont good diet and adhere to med schedunfor екатерина has been out of [facility] for 1 month Atrial fibrillation 4943 6004 I48.91 stable and no palpitatio ns or presncopal sx chads2 eval done and is stable Myasthenia gravis 263584 [address] G[address] nely davidson without issue must remember he is somewhat immunocomp romised with the medication use (per dr mckay) Essential hypertension 76591504 I10 stable no change in meds will cont to monitor at home Dyspnea on exertion 6084 [address]06[address] Taylor next on 2/2/24his sob seems to be a bit worse than in the recent past Aortic valve stenosis 60 822969 I35.0 has severe disease and needs a new echo this is overdue told pt he must have notes from cardiol sent to me and he must have a new echo done [id number] Tommie Thomas [facility] Internal Medicine [address],[place] [address] 12/30/2023 10:49:45 12/30/2023 14:00:12 Type 2 diabetes mellitus 89475968 E11.9 a1c is down to 8.8 from 10.2 we had increased glipizide to 10 biddiscuss ed need to cont good diet and adhere to med schednow using trulicity 1.5 2 shots per week he has stopped januvia due to hypoglycem ia Aortic valve stenosis 60 519898 I35.0 has severe disease and needs a new echo this is overdue told pt he must have notes from cardiol sent to me and he must have a new echo done Dyspnea on exertion 6084 [address]06[address] Taylor next on 10/04/24his sob seems to be a bit worse than in the recent past Essential hypertension 44817446 I10 stable no change in meds will cont to monitor at home [id number] Tommie Thomas DO [facility] Medicine [address] [facility],[place] [address] 03/04/2024 09:56:09 03/04/2024 10:30:52 Depression screening 986738830 Z13.31 neg Essential hypertension 19091622 I10 stable no change in meds will cont to monitor at home Myasthenia gravis 571093 04 G[address] nely davidson without issue must remember he is somewhat immunocomp romised with the medication use (per dr mckay) Type 2 darrick betes mellitus 37880050 E11.9 a1c is down to 8.8 from 10.2 we had increased glipizide to 10 biddiscuss ed need to cont good diet and adhere to med schednow using trulicity 1.5 2 shots per week he has stopped januvia due to hypoglycem ia Edema of l ower extremity 581362604 R60.0 much better down to 1+ or less staying very active puts legs upwont wear teds support hose believe his leg weakness is poss caused by lumbar stenosis? had PVD eval already Peripheral vascular disease 856366201 I73.9 denies any issues still swollen Atrial fibrillation 4943 6004 I48.91 stable and no palpitatio ns or presncopal sx chads2 eval done and is stable Aortic valve stenosis 60 046309 I35.0 doing much better after valve ballooning relates no longer sob [id number] Tommie Thomas DO [facility] Medicine [address] [facility],[place] [address] 07/06/2024 10:39:26 07/06/2024 11:26:08 Adult health examination 895824138 Z00.01 Screening for cardiovascular system disease 385983636 Z13.6 stable Screening for malignant neoplasm of colon 646921322 Z12.11 up to date Atrial fibrillation 4943 6004 I48.91 stable and no palpitatio ns or presncopal sx chads2 eval done and is stable 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 Type 2 darrick betes mellitus 23085575 E11.9 has been off trulicity since surgery go back on eating better now a1c pending a1c is down to 8.8 from 10.2 we had increased glipizide to 10 biddiscuss ed need to cont good diet and adhere to med schednow using trulicity 1.5 2 shots per week he has stopped januvia due to hypoglycem ia Peripheral vascular disease 298287368 I73.9 denies any issues still swollen Edema of l ower extremity 073174727 R60.0 lost 15 lbs and is doing better with edema wishes to stop will compromise and go 3x week and see how he does [id number] Tommie Thomas, DO [facility] Internal Medicine [address] [facility],[place] [address] 10/26/2024 10:43:24 10/26/2024 11:14:51 Atrial fibrillation 66065082 I48.91 stable and no palpitatio ns or presncopal sx chads2 eval done and is stable Essential hypertension 42779469 I10 stable no change in meds will cont to monitor at home Peripheral vascular disease 592415483 I73.9 denies any issues still swollen Type 2 darrick betes mellitus 99620062 E11.9 has been doing well and actually [...] by Organization Details LastModified Time None Recorded Advance Directives Directive None Recorded Payers Encounter Date Sequence Insurance Name Policy Number Policy Potter Covered Member ID Potter Member ID Guarantor Name 09/23/2023 1 [place] [facility] John Greenfield [id number] John Greenfield 09/23/2023 2 [place] [id number] John Greenfield [id number] John Greenfield 12/30/2023 1 [place] [facility] John Greenfield [id number] 03 John Greenfield 12/30/2023 2 [place] [id number] John Greenfield [id number] John Greenfield 03/04/2024 1 [place] [place] John Greenfield [id number] John Greenfield 03/04/2024 2 [place] [id number] John Greenfield [id number] John Greenfield 07/06/2024 1 [place] [facility] John Greenfield [id number] John Greenfield 07/06/2024 2 [place] [id number] John Greenfield [id number] John Greenfield 10/26/2024 1 [place] [employer] [place] John Greenfield [id number] John Greenfield 10/26/2024 2 [place] [id number] John Greenfield [id number] John Greenfield Notes Date Note Type Note Provider Name and Address Organization Details Recorded Time 4 text/htm l Patient is a _83_ year old {{male* female}} with a history of hypertension. Patient had been stable on medication until recently. Patient returns today for further evaluation. Patient denies lightheadedness or dizziness. he relates that he has been out of trulicity for 1 month due to supply [id number] is now down to 8.8 from 10.3relates that he is now eating better Tommie Martinez Brandon, DO [address] [place], [address], [facility] 09/23/2023 11:17:59 4 text/htm l here for rechk and is doing about the same relates that he is going to [facility] for ct scan of chest a nd abdomen today relates will be getting a TAVR in Maycurrently getting sob with exertionno cphas lost a lot of weight about Tommie Martinez Brandon, DO [address] [place], [address], [facility] 12/30/2023 11:19:54 4 text/htm l here for reichk 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 and is in the middle of hay seasonsugar 2 weeks ago was 399 was on moxifloxacin for wound and relates that he is frustrated with the wound care people Tommie Martinez Brandon, [address] [place], [address], [facility] 03/04/2024 10:27:33 4 text/htm l Medicare Annual Wellness VisitReported bypatient.Diet and Nutrition:healthy diet Fracture Risk:no history of fractures; no recent explained fracture; no sudden unexplained fractures; no previous musculoskeletal injuries Physical Activity:exercises on a regular basis; recent increase in physical activity; good physical condition Depression Risk:never feels sad, empty, or tearful; no loss of interest in activities; no significant changes in weight; no sleep disturbances or insomnia; no agitation; no loss of energy; no feelings of worthlessness or guilt; no thoughts of suicide; no history of depression; no history of mood disorders Orientation:no disorientation to time; no disorientation to date; no disorientation to place Concentration and Memory:no decreased concentrating ability; no memory lapses or loss; does not forget words Speech/Motor difficulties:no speech difficulties; no difficulty expressing formulated concepts; no difficulty with fine manipulative tasks; no difficulty writing/copying; no slowed reaction time; does not knock things over when trying to pick them up Hearing:no loss of hearing Vision:no vision problems Activities of Daily Living:able to bathe with limited or no assistance; able to contol urination and bowels; able to dress with limited or no assistance; able to feed self with limited or no assistance; able to get out of chair or bed with limited or no assistance; able to groom with limited or no assistance; able to toilet with limited or no assistance Instrumental Activities of Daily Living:able to do house work with limited or no assistance; able to grocery shop with limited or no assistance; able to manage medications with limited or no assistance; able to manage money with limited or no assistance; able to prepare meals with limited or no assistance; able to use the phone with limited or no assistance Falls Risk Assessment:no frequent falls while walking; no fall in the past year; no fall since last visit; no dizziness/vertigo Home Safety:no unsafe kayode hazzards; no unsafe stairs; no unsafe gas appliances; working smoke/CO detectors; wears protective head gear for biking/high velocity; use of seatbelts; practicing 'safer sex'; no vision or hearing loss while driving; no fire arms; has hand bars in the bathroom/shower; good lighting in the home here following his surgery for SBO adhesion lysis Tommie Thomas, DO [address] [place] [address], [place], [address], [facility] 07/06/2024 11:25:28 5 text/htm l Care Management - DiabetesReported [...] moa1c done today Tommie Thomas, DO [address] [facility], [place], [address], [facility] 10/26/2024 11:02:53
[2024-10-26 13:52] LABS: MANUAL DIFF FLAG NO
[2024-10-26 13:55] LABS: Basophils Absolute Auto 0.1 X10*3/uL (0.0-0.2); Basophils Percent Auto 0.7 % (0-2); Eosinophils Absolute Auto 0.2 X10*3/uL (0.0-0.4); Eosinophils Percent Auto 1.4 % (0-4); Hematocrit 41.9 % (42.0-52.0); Hemoglobin 14.4 g/dl (14.0-18.0); Imm Gran Abs Auto 0.14 X10*3/uL (0.00-0.03); Imm Gran Pct Auto 1.2 % (0.0-0.4); Lymphocytes Absolute Auto 1.5 X10*3/uL (1.2-4.9); Lymphocytes Percent Auto 13.1 % (20-40); Mean Corpuscular HGB Conc 34.4 g/dl (31.0-36.0); Mean Corpuscular Hemoglobin 30.8 pg (27.0-33.0); Mean Corpuscular Volume 89.7 fL (80.0-98.0); Mean Platelet Volume 9.9 fL (9.4-12.4); Monocytes Absolute Auto 0.7 X10*3/uL (0.1-1.2); Monocytes Percent Auto 5.8 % (2-11); Neutrophils Absolute Auto 9.2 x10*3/uL (2.0-8.3); Neutrophils Percent Auto 77.8 % (45-73); Platelet Count 193 X10*3/uL (160-400); Red Blood Count 4.67 X10*6/uL (4.60-5.80); Red Cell Distribution Width 14.6 % (11.0-16.0); White Blood Count 11.8 X10*3/uL (4.8-10.8)
[2024-10-26 14:09] LABS: Estimated Average Glucose 203 mg/dL; Hemoglobin A1C 264.8406 umol/L; Hemoglobin A1c % 8.7 % (<6.0); Total Hemoglobin (HGBA1C) 3703.5934 umol/L
[2024-10-26 14:26] LABS: Alanine Aminotransferase 21 U/L (0-40); Albumin Level 3.7 g/dL (3.5-5.0); Alkaline Phosphatase 79 U/L (39-117); Anion Gap 13 (12-20); Aspartate Amino Transferase 26 U/L (5-37); Bilirubin Total 0.7 mg/dL (0.0-1.0); Blood Urea Nitrogen 24 mg/dL (9-16); Calcium 9.2 mg/dL (8.4-10.2); Carbon Dioxide 26 mmol/L (22-29); Chloride 102 mmol/L (96-108); Estimated Glomerular Filt Rate 56; Glucose Random 392 mg/dL (60-115); Potassium 5.1 mmol/L (3.3-5.1); Sodium 136 mmol/L (135-145); Total Protein 6.9 g/dL (6.5-8.0)
== END 2024-10-26 10:30 | disposition home or self-care (01) ==
LOC: HO.MANLDS 10:29
PROVIDERS: Visit Provider Internal Medicine
DX: Z00.01 Encounter for general adult medical examination with abnormal findings (principal); E11.9 Type 2 diabetes mellitus without complications
CPT/HCPCS: 36415; 80053; 83036; 85025

== ENCOUNTER 2024-11-30 09:00 | Outpatient (RCR) | payer MEDICARE, SELFPAY ==
--- NOTE | ~2024-11-30 | XR_ITS ---
EXAMINATION: XR FOOT, LEFT CLINICAL INFORMATION: Attention 3rd toe nonhealing wound, rule out osteomyelitis. COMPARISON: None available. TECHNIQUE: 4 views of the left foot. FINDINGS: There is severe, diffuse bony demineralization. Large dorsal calcaneal spur. Small plantar calcaneal spur. Extensive vascular calcifications. Amorphous calcification versus ossification along the medial aspect of the IP joint of the great toe. Radiopaque marker placed by technologist to indicate the area of concern as indicated by the patient along the distal aspect of the 3rd toe. Amorphous calcifications in the soft tissues along the distal lateral aspect of the 3rd toe. Curvilinear lucency along the medial aspect of the distal tuft of the 3rd toe could represent nondisplaced corner fracture. XR/XR foot LT min 3V IMPRESSION: 1. Curvilinear lucency along the medial aspect of the distal tuft of the 3rd toe could represent nondisplaced corner fracture. 2. Amorphous calcifications in the soft tissues along the distal lateral aspect of the 3rd toe.
== END 2024-12-04 09:53 | disposition home or self-care (01) ==
LOC: HO.WCC 09:00
PROVIDERS: PCP Internal Medicine; Visit Provider Surgery
DX: E11.622 Type 2 diabetes mellitus with other skin ulcer (principal); L97.812 Non-pressure chronic ulcer of other part of right lower leg with fat layer exposed; I87.311 Chronic venous hypertension (idiopathic) with ulcer of right lower extremity; E11.51 Type 2 diabetes mellitus with diabetic peripheral angiopathy without gangrene; I87.2 Venous insufficiency (chronic) (peripheral); I89.0 Lymphedema, not elsewhere classified
CPT/HCPCS: 11042; 11043; 11045; 15271; 73630; 87070; 87077; 87186; 87205; 97597; 99211; 99212; 99213; Q4187